=== PATIENT | female | born 1945 | race Caucasian/White ===

== ENCOUNTER 2023-12-23 15:31 | Inpatient (IN) | payer MEDICARE, OTHER, SELFPAY ==
[2023-12-23] VITALS (18 sets, daily range): BP systolic 117–160; BP diastolic 54–69; BMI 37.5; BMI 35.6
--- NOTE | 2023-12-23 13:06 | ED.GENMED ---
History of Present Illness
General
Chief Complaint: Abnormal Lab Value
Source: patient
Exam Limitations: none
Time Seen by Provider: 12/23/23 13:05
Nursing documentation reviewed up to this point in time: agreed with
History of Present Illness
History of Present Illness:
78 yo female w h/o HTN, HLD, GERD presents for low Hgb. She had blood work drawn this morning with a documented hemoglobin of 6.3. Had blood drawn last week for routine appointment today, PCP had her repeat the blood work today and Hgb 6.3
Has arthritis and was taking Motrin 400 mg 'sometimes more' up to 3 times a day until it started 'bothering my stomach' and switched to Tylenol 2 months ago. States she has not taken more than 1-2 doses in past 2 months.
Has not noted change in color of stool. Has been more short of breath intermittently past month and has felt fatigued.
Denies CP, Abd pain.
Past History
Past History
ED Past Medical History: GERD, HTN and Hypercholesterolemia
ED Past Surgical History: Appendectomy and Orthopedic
Social History
Tobacco: Non-smoker
Alcohol: None
Personal:
Living: with family
Review of Systems
Review of Systems
Allergies reviewed?: Yes
All Other Systems: ROS reviewed and negative except as documented in HPI and ROS
Constitutional: Reports fatigue; Denies fever or chills
Respiratory: Denies trouble breathing
Cardiac: Denies chest pain
ABD/GI: Denies abdominal pain, nausea, vomiting, diarrhea, bloody stools or black stools
: Denies dysuria, frequency or difficulty voiding
Musculoskeletal: Reports no symptoms
Skin: Reports no symptoms
Neurological: Reports no symptoms
Phy Exam
Physical Exam
Physical Exam:
GENERAL: No acute distress. A&Ox3.
CONSTITUTIONAL: Afebrile.
EYES: PERRL, conjunctivae normal
ENMT: moist mucus membranes, Pharynx nl
RESPIRATORY: Regular respirations, nonlabored, lungs clear.
CARDIOVASCULAR: Regular rate and rhythm, no murmurs, no rubs.
GI: Soft, nontender, normal BS
Rectal: Brown soft stool, heme positive
MUSCULOSKELETAL: Moves with ease. Well perfused.
SKIN: Warm, dry, pink
PSYCH: Normal mood and affect. Well kept, interactive and appropriate
NEUROLOGIC: Awake, alert and oriented. No focal neurological deficits
Course
Orders/Labs/Results
Orders:
Orders
12/23/23 Breakfast
Clear Liquid
At Your Request: Limited, Knitting Machine Fixer Required
12/23/23 13:26
* Blood Bank Products Urgent
Blood Bank Products: *Packed RBC Leuko(PRBC's)
Quantity: 2
Transfuse Today: Yes
Is product needed for scheduled surgery?: Yes
Reason: Anemia
Other reason: GI bleed
IV Insert/Care/Rem.- Treatment PRN
12/23/23 13:37
GASTROINTESTINAL CONSULT Urgent
Consulting Provider: Keyshawn Kidd
Was physician already notified: Yes
Reason for consult: GI bleed
12/23/23 13:50
Type And Crossmatch Urgent
12/23/23 14:10
Admit/Transfer Patient As Directed
Co-Sign Provider:
Level of Care: Inpatient admission
Assign to:: Medical/Surgical
Physician / Group: Htay
Diagnosis: Anemia, GI Bleed
Reason for Hospitalization: blood transfusion, GI consult
Expected length of stay greater than two midnights?: Yes
ELOS- Estimated Length of Stay in days: 3
I certify the patient meets the requirements for IP care: Yes
12/23/23 14:14
Code Status As Directed
Resuscitation Status: Full Code
12/23/23 14:28
ABO2 Urgent
BBK Wristband Number:
Associate notified that ABO2 has been ordered: [id number]
Date: 12/23/23
Time: 14:02
Numerical Control Programmer ID: [id number]
12/23/23 14:51
Pantoprazole [Protonix] 40 mg PO NOW STA
12/23/23 14:53
Surgical Procedure As Directed
Surgical Procedure: EGD
12/24/23 01:00
Pantoprazole [Protonix IV] 40 mg IV BID
12/24/23 Breakfast
NPO
Allow oral meds: Yes
Allow clear liquids: 4hrs prior to procedure
NPO for procedure after (time): midnight for GI Procedure tomorrow
Comment: may have unrestricted clear liquids up to 4 hrs prior to scheduled proc
12/24/23 14:00
Ferric Gluconate [Ferrlecit] 125 mg 0.9% Sodium Chloride 100 ml [Nss] 100 ml IV ONCE@1400
Abnormal Lab Results
12/23/23
13:50
Crossmatch IS Only See Detail
Vital Signs
Initial and Last Documented VS:
Initial Vital Signs
Temp Pulse Resp BP Pulse Ox
97.5 F 85 18 130/64 99
12/23/23 12:44 12/23/23 12:44 12/23/23 12:44 12/23/23 12:44 12/23/23 12:44
Last Documented Vital Signs
Temp Pulse Resp BP Pulse Ox
98.4 F 68 17 120/65 98
12/23/23 17:35 12/23/23 18:00 12/23/23 18:00 12/23/23 18:00 12/23/23 18:00
MDM/Problems Addressed
Differential Diagnosis Includes:
GI bleed
MDM/Problems Addressed:
78 yo female w h/o HTN, HLD, GERD presents for low Hgb. She had blood work drawn this morning with a documented hemoglobin of 6.3. Had blood drawn last week for routine appointment today, PCP had her repeat the blood work today and Hgb 6.3
Has arthritis and was taking Motrin 400 mg 'sometimes more' up to 3 times a day until it started 'bothering my stomach' and switched to Tylenol 2 months ago. States she has not taken more than 1-2 doses in past 2 months.
Has not noted change in color of stool. Has been more short of breath intermittently past month and has felt fatigued.
Denies CP, Abd pain.
Afebrile, NAD
Rectal exam: heme positive stool
Labs from earlier today reviewed: Hgb 6.3 iron and ferritin low.
Pt stable, GI and Hospitalist notified of admission
Pt is stable.
*Critical Care Note
Total Time (30-74mins, 75-104mins- exclusive of procedures): Not Applicable
ED Attending Note
-
Portions of this chart may have been created with voice recognition software.� Occasional wrong word or��sound alike� substitutions may have occurred due to the inherent limitations of voice recognition software.
Discharge Plan
Departure
Patient Disposition: Admit
Date of Disposition: 12/23/23
Time of Disposition: 13:35
Admit to: Med/Surg
Presentation/result/management discussed w/ accepting MD/DO: Hospitalist
Condition: Fair
Discharge Problem:
GI bleed
Interventions
Interventions:
*Risk Screen - Suicide Last Done: 12/23/23 18:57
*General Assessment Last Done: 12/23/23 12:44
*Neglect/Abuse Screening Last Done: 12/23/23 12:44
*ED COVID-19 Vaccine History Last Done: 12/23/23 12:46
--- NOTE | 2023-12-23 14:02 | CON.GI ---
Consultation
-
Date/Time Consultation Requested: 12/23/23
Date/Time Consultation Performed: 12/23/23
Requesting Provider: Virginia Butler
Performing Provider: Jeni Stacy
Reason for Consultation: Anemia, heme positive stool
Medical History
Chief Complaint / HPI
Chief Complaint: Anemia
History of Present Illness:
Darcy Reed is a 78 y.o. female with pmhx HTN, HLD, GERD who presents for abnormal outpatient labs. She was having routine bloodwork ordered by her PCP, instructed to come in for urgent evaluation after hemoglobin returned at 6.3. She admits to some
fatigue and SOB but otherwise, denies any melena, hematochezia, dizziness/lightheadedness, unintentional weight loss. She admits to prior heavy NSAID use-Motrin 400mg up to three times daily, however, stopped using it about 2 months ago as it caused
her some GI distress, specifically epigastric pain, switching to Tylenol. Reports she had epigastric pain for about a month prior to discontinuing motrin. She reports that she has taken only 1-2 doses of Motrin in the last 2 months. No prior EGD.
Multiple prior colonoscopies in [place], [place], last one approx 5-6 years ago, denies history of polyps. No history of GI bleeding. She is not on any anticoagulation or antiplatelet agents. Denies family history of GI malignancy.
Admitting labs:
WBC 6.3, Hgb 6.3, MCV 63.5, Plt 317
BUN 19/Cr. 0.8
Fe 23, Ferritin 6.6, B12 514, Folate >20
Past Medical History
Past Medical History: HTN and Hypercholesterolemia
Social History
Tobacco: Non-Smoker
Alcohol: None
Drug: None
Family History
Family History: Reviewed & Not Pertinent
Allergies / Home Medications
Allergy/AdvReac Type Severity Reaction Status Date / Time
Penicillins Allergy Rash Verified 12/23/23 12:44
�Medication �Instructions �Recorded
alprazolam 0.5 mg tablet,extended 0.25 mg PO DAILY 12/23/23
release 24 hr
atorvastatin 20 mg tablet 20 mg PO DAILY 12/23/23
bisoprolol 5 1 tab PO DAILY 12/23/23
mg-hydrochlorothiazide 6.25 mg
tablet
fexofenadine 180 mg tablet 180 mg PO DAILY 12/23/23
levothyroxine 75 mcg tablet 75 mcg PO DAILY 12/23/23
magnesium oxide 400 mg PO HS 12/23/23
pantoprazole 40 mg tablet,delayed 40 mg PO DAILY 12/23/23
release
sertraline 50 mg tablet 50 mg PO BID 12/23/23
vitamin B complex 1 tab PO DAILY 12/23/23
Review of Systems
-
History Source: Patient and Family (Daughter)
All other systems: A 12 pt ROS was Negative except as stated above in HPI
Vital Signs
Temp Pulse Resp BP Pulse Ox
97.5 F 65 20 130/64 96
12/23/23 12:44 12/23/23 13:30 12/23/23 13:30 12/23/23 12:44 12/23/23 13:30
Physical Exam
Exam
GENERAL: In no acute distress, appears comfortable
HEENT: +conjunctival pallor
ABDOMEN: +BS; soft, non-tender and non-distended; no rebound or guarding; [place]: brown, hem positive
Results
Diagnostic Image Results:
Prior GI Procedures:
EGD:
Colonoscopy:
Assessment / Plan
-
78 y.o. female with pmhx HTN, HLD, GERD admitted for anemia on outpatient labs, found to be iron deficient with concerns for GI bleeding.
#Iron Deficiency Anemia-- history of heavy NSAID use, no nsaids in last 6-8 weeks
-Hgb 6.3; 2 units of PRBC ordered; elevated BUN suggestive of UGI bleeding source
-2 large peripheral gauge IVs, active T&S
-F 23, Ferritin 6-- > recommend 1x dose of IV iron, then start daily PO iron +bowel regimen
-reports prior epigastric pain about a month ago which resolved w/ discontinuation of NSAIDs, suspect NSAID-induced ulcer that has already healed given her stool is brown
-IV PPI
-clear liquids
-NPO PMN for EGD tomorrow
Discussed plan with both patient and daugther at length who are in agreement. All questions answered.
-
-
Thank you for consultation and allowing me to participate in the patient's care. Please call the information developer GI physician during the after hours with any questions or concerns.
--- NOTE | 2023-12-23 14:19 | HPS.HSE ---
Addendum entered and electronically signed by Gordo Estevez MD 12/23/23 14:41:
I saw and examined the patient.
The CUSTOMER STRATEGY MANAGER or PA's note was reviewed and I agree with the note.
Comment:
This note serves as an addendum to the H&P by tennis camp instructor ANDRAE Fani MENDOZA
HPI
78F HX HTN, HLD, GERD, DJD seen at ER:
- pw fatigue, LONGORIA for a month
- OP lab shows Hgb 6.3
- reports taking Motrin 400 mg 'sometimes more' up to 3 times a day
- currently on Tylenol , cont Motrin t started 'bothering my stomach'- she has not taken more than 1-2 doses in past 2 months.
- Denied change in color of stool.
- Denies CP, Abdominal pain.
HoB POS brown stool per ER
Reviewed VS: HR 65 BP 130/65
PE
Gen: NAD
HEENT: pale conjunctiva
Neck: supple
Lungs: CTA
Cor: RRR S1 S2
Abdomen: soft NT NG
POKER MACHINE ATTENDANT: Alert, NFND
MS: no edema
Psych: normal affect
Data
Ferritin 6.6
ASSESSMENT & PLAN
Symptomatic severe microcytic anemia - suspect subacute chronicity due to macrocytosis
Associated with HoB POS brown stool GIB - suspect subacute DDX; NSAIDs related PUDx
Fe def anemia with low Fe strore
HD stable
HX GERD
- Blood consented
- agree with Blood Tx 2 PRBCs
- To consider IV Fe Tx while in patient
- Clear and IVF
- IV PPI BID
- H & H q8h
- avoid NSAIDS
- GI consulted for EGD in AM
Essential HTN
- currently normotensive
- c/w Bisoprolol with hold index
- Hold HCTZ
HLD
- on statin
DVT
Full code
IP TLM
Original Note:
Family Physician
-
Family Physician: Dana Licea MD
Chief Complaint
-
Anemia
History of Present Illness
Patient is a 78 y/o female sent by her PCP for anemia. Patient reports her Hgb dropped from 11 to 6. She reports taking an increased amount of NSAIDs over the summer due to worsening arthritis pain. She reports she stopped take the NSAIDs over a
month ago when she noted they were starting to make her stomach upset. She admits to increased fatigue as well as dyspnea on exertion over the past few weeks. She denies black or bloody stools. She denies prior history of ulcers.
Medical History
Past Medical History
Past Medical History: Reports Other
Additional Past Medical History:
Essential Hypertension
Hyperlipidemia
Hypothyroidism
Osteoarthritis
Anxiety/Depression
GERD
Past Surgical History: Reports Other
Additional Past Surgical History:
Right Shoulder Surgery
Left Wrist Surgery
Bilateral Knee Replacements
Foot Surgery
Social History
Tobacco: Non-smoker
Alcohol: Occasional
Family History
Family History: Not pertinent
Allergies / Home Medications
Allergies reflects when Allergies were last updated in [facility].
Home Medications with original date entered in [facility]
Allergy/Medication List:
Allergies
Allergy/AdvReac Type Severity Reaction Status Date / Time
Penicillins Allergy Rash Verified 12/23/23 12:44
Home Medications
alprazolam 0.5 mg tablet,extended release 24 hr 0.25 mg PO DAILY 12/23/23
atorvastatin 20 mg tablet 20 mg PO DAILY 12/23/23
bisoprolol 5 mg-hydrochlorothiazide 6.25 mg tablet 1 tab PO DAILY 12/23/23
fexofenadine 180 mg tablet 180 mg PO DAILY 12/23/23
levothyroxine 75 mcg tablet 75 mcg PO DAILY 12/23/23
magnesium oxide 400 mg PO HS 12/23/23
pantoprazole 40 mg tablet,delayed release 40 mg PO DAILY 12/23/23
sertraline 50 mg tablet 50 mg PO BID 12/23/23
vitamin B complex 1 tab PO DAILY 12/23/23
Review of Systems
-
A 12 point ROS was completed and negative except as noted: Yes
Constitutional: Denies Fever or Chills
Respiratory: Reports Trouble Breathing; Denies Cough
Cardiac: Denies Chest Pain, Palpitations or Syncope
Abdomen/GI: Reports See HPI
Neurological: Denies Dizzy
Physical Exam
Vital Signs
Vital Signs
Temp Pulse Resp BP Pulse Ox
97.5 F 65 20 130/64 96
12/23/23 12:44 12/23/23 13:30 12/23/23 13:30 12/23/23 12:44 12/23/23 13:30
Physical Exam
General: Comfortable and Conversant
HEENT: Anicteric and Moist mucous membranes
Respiratory: Clear and Non Labored Respirations
Cardiac: S1/S2 and Regular Rhythm
GI: Soft and Non Tender
Rectal: Hem Positive (Per ED Provider)
Musculoskeletal: No Clubbing, Cyanosis and No Edema
Skin: Warm and Dry
Neuro: Awake, Alert, Oriented and Nonfocal/grossly intact
Psych: Calm
Laboratory Results
-
Laboratory Tests
12/23/23
08:06
WBC 6.3
Hgb 6.3 L*
Hct 23.8 L
Plt Count 317
Iron 23 L
Ferritin 6.6 L
Vitamin B12 514
Folate > 20.0 H
Data Reviewed
-
Lab Data: Labs Reviewed by me
Impression/Plan
-
Blood Loss Anemia secondary to GI Bleed
-Suspect more subacute blood loss
-Suspect peptic ulcer disease related to NSAID use
-Transfuse 2 units PRBCs
-Continue Protonix 40mg IV BID
-Allow clear liquids for now then NPO after midnight for EGD in AM
-Consult GI
Essential Hypertension
-Continue bisoprolol with hold parameters
-Hold HCTZ
Hyperlipidemia
-Continue atorvastatin
Hypothyroidism
-Continue levothyroxine
Anxiety/Depression
-Continue alprazolam and sertraline
DVT proph: SCDs
Code Status: Full Code
[2023-12-23] MEDS: PROTONIX 40 MG PO (16:18)
--- NOTE | 2023-12-23 17:27 | W.PN.UPDATE ---
Update Note
Progress Note Update
This note serves as an addendum to the H&P by substation operator automatic ANDRAE Fani MENDOZA
HPI
78F HX HTN, HLD, GERD, DJD seen at ER:
- pw fatigue, LONGORIA for a month
- OP lab shows Hgb 6.3
- reports taking Motrin 400 mg 'sometimes more' up to 3 times a day
- currently on Tylenol , cont Motrin t started 'bothering my stomach'- she has not taken more than 1-2 doses in past 2 months.
- Denied change in color of stool.
- Denies CP, Abdominal pain.
HoB POS brown stool per ER
Reviewed VS: HR 65 BP 130/65
PE
Gen: NAD
HEENT: pale conjunctiva
Neck: supple
Lungs: CTA
Cor: RRR S1 S2
Abdomen: soft NT NG
COUNTY DEMONSTRATOR: Alert, NFND
MS: no edema
Psych: normal affect
Data
Ferritin 6.6
ASSESSMENT & PLAN
Symptomatic severe microcytic anemia - suspect subacute chronicity due to macrocytosis
Associated with HoB POS brown stool GIB - suspect subacute DDX; NSAIDs related PUDx
Fe def anemia with low Fe strore
HD stable
HX GERD
- Blood consented
- agree with Blood Tx 2 PRBCs
- To consider IV Fe Tx while in patient
- Clear and IVF
- IV PPI BID
- H & H q8h
- avoid NSAIDS
- GI consulted for EGD in AM
Essential HTN
- currently normotensive
- c/w Bisoprolol with hold index
- Hold HCTZ
HLD
- on statin
DVT
Full code
IP TLM
[2023-12-23 22:11] LABS: Hematocrit 25.4 % (37.0-47.0); Hemoglobin 7.5 g/dL (12.0-16.0)
[2023-12-23] MEDS: ZOLOFT 50 MG PO (22:38)
[2023-12-24] VITALS (7 sets, daily range): BP systolic 21–152; BP diastolic 53–76
[2023-12-24] MEDS: PROTONIX IV 40 MG IV ×2 (01:18→20:22)
[2023-12-24] MEDS: NSS (PRESERVATIVE FREE) 10 ML IV ×2 (01:19→20:23)
[2023-12-24] MEDS: SYNTHROID 75 MCG PO (04:59)
[2023-12-24 05:21] LABS: Hematocrit 28.3 % (37.0-47.0); Hemoglobin 8.5 g/dL (12.0-16.0); Mean Corpuscular Hgb 19.6 pg (27.0-31.0); Mean Corpuscular Volume 65.4 fL (81.0-99.0); Mean Platelet Volume 9.6 fL (7.4-10.4); Platelet Count 245 10^3/uL (130-400); Red Blood Cell Count 4.33 10^6/uL (4.20-5.40); White Blood Cell Count 7.1 10^3/uL (4.8-10.8)
[2023-12-24 05:31] LABS: Blood Urea Nitrogen 16 mg/dl (7-17); Calcium 9.5 mg/dl (8.4-10.2); Carbon Dioxide 23 mmol/L (22-30); Chloride 105 mmol/L (98-107); Estimated Creatinine Clearance 67 ml/min; Glucose 105 mg/dl (70-99); Sodium 141 mmol/L (135-145); eGFR > 60.00
[2023-12-24] MEDS: ZOLOFT 50 MG PO ×2 (09:16→20:23)
[2023-12-24] MEDS: ZEBETA 5 MG PO (09:16)
[2023-12-24] MEDS: XANAX 0.25 MG PO (09:16)
--- NOTE | 2023-12-24 09:57 | W.PN.HOSP.TC ---
Addendum entered and electronically signed by Douglas Aivla MD 12/24/23 23:41:
Attending Addendum-
I saw and evaluated the patient. I reviewed the resident�s note and agree with findings and plan as documented in the resident�s note. Sub: Denies BRBPR or melena. Feels improved. 'Im a strong lady. I can go home' Denies abd pain N/V Full 12 point
ROS reviewed and negative except as documented Exam: Vitals reviewed in chart GEN-NAD heart RRR lungs clear abd soft LE no edema
#Symptomatic severe microcytic anemia -Acute on Chronic
- has been taking excessive NSAIDS
- EGD- 12/23- - eosinophilic esophagitis.
- Small hiatal hernia.
- Gastritis. Biopsied.
- No UGI bleeding noted
- Fe def anemia- cont IV iron
- HB 6.3->8.9 s/p Tx 2 PRBCs
- cont IV PPI BID
- avoid NSAIDS
- colonoscopy in am
- NPO pMN
- CBC in am
# Essential HTN
- currently normotensive
- c/w Bisoprolol
- Hold HCTZ
#HLD
- cont atorvastatin
# Anxiety
- cont chronic alprazolam
# Depression
- cont sertraline
# Hypothyroidism
- cont levothyroxine
DVT - SCDS
Full code
Dispo- DC after colon
Time spent coordinating care, review of plan of care with resident, personally reviewed records in EMR, med rec, consults, notes, labs, radiology, d/w nursing � 59 mins
Original Note:
Today's Communication/Plan
-
EGD
IV PPI twice daily
IV iron transfusion
Monitor hemoglobin
Assessment / Plan
Assessment / Plan
Impression: 78-year-old female past ministry of hypertension, hyperlipidemia, GERD, arthritis, DJD with history of extensive Motrin use for arthritis presents from outpatient lab for hemoglobin 6.3 and fatigue.
Plan:
#Symptomatic chronic microcytic anemia
#Iron deficiency
Suspect chronicity due to microcytosis
Associated with Hemoccult positive brown rectal stool, potentially NSAID related, patient reports using multiple doses of NSAIDs for arthritis pain. Informed patient Tylenol is much safer told her max daily dose and encouraged Tylenol use.
Hemoglobin on admission 6.3
Status post 2 unit packed red blood cells
Hemoglobin 8.8
H&H every 8h
Ferritin returned at 6.6
IV iron transfusion
IV PPI twice daily
Avoid NSAIDs
GI consulted, EGD results are in data section
No GI bleed on EGD
Biopsies pending
#Eosinophilic esophagitis
Findings on EGD consistent with eosinophilic esophagitis
Management/workup per GI
#Essential hypertension
Currently normotensive
Continue home bisoprolol
Currently holding hydrochlorothiazide
#Hypothyroidism
Continue home levothyroxine
#Anxiety/depression
Continue home sertraline
#Hyperlipidemia
Continue home statin
Full code
Diet: Clear liquids
Data:
EGD 12/24/2023
Impression: - Esophageal mucosal changes consistent with
eosinophilic esophagitis.
- Small hiatal hernia.
- Gastritis. Biopsied.
- Food (residue) in the stomach.
- Normal examined duodenum. Biopsied.
- Biopsies were taken with a cold forceps for
evaluation of eosinophilic esophagitis.
- No UGI bleeding noted
Anticipated Discharge: 24 - 48 hours
Subjective/Interval History
-
Date of Service: December 24, 2023
No acute events overnight, patient received 2 units packed red blood cells
Patient reports resolution of abdominal symptoms and fatigue
Objective Data
-
Labs:
Laboratory Results
12/23/23 12/24/23 12/24/23
22:00 04:31 04:53
WBC 7.1
Hgb 7.5 L Cancelled 8.5 L
Hct 25.4 L Cancelled 28.3 L
Plt Count 245 D
Sodium 141
Potassium 4.0
Chloride 105
Carbon Dioxide 23
BUN 16
Creatinine 0.7
Glucose 105 H
Calcium 9.5
12/24/23
12:31
WBC
Hgb Pending
Hct Pending
Plt Count
Sodium
Potassium
Chloride
Carbon Dioxide
BUN
Creatinine
Glucose
Calcium
Vital Signs:
Vital Signs
Temp Pulse Resp BP Pulse Ox
98.2 F 66 22 138/65 98
12/24/23 07:30 12/24/23 07:30 12/24/23 07:30 12/24/23 07:30 12/24/23 07:30
I&O
12/23/23 12/24/23 12/25/23
06:59 06:59 06:59
Intake Total 620 / 620
Balance 620 / 620
Review of Systems
-
History Source: Patient
Respiratory: Reports No Symptoms
Cardiac: Reports No Symptoms
Abdomen/GI: Reports No Symptoms; Denies Abdominal Pain, Bloody Stools or Black Stools
Physical Exam
-
General: Well Developed, Well Nourished, No Apparent Distress, Comfortable and Conversant
Respiratory: Clear to Auscultation and Wheezes
Cardiac: Regular Rhythm and S1/S2
GI: Soft, Nontender, Nondistended and Normal Bowel Sounds
Rectal: Negative Maroon Stools
Skin: Warm and Dry
Neuro: Awake, Alert, Oriented and AO x 3
Psych: Calm and Intact Judgement/Insight
Data Reviewed
-
Labs: Labs Reviewed by me and Discussed with Physician
[2023-12-24] MEDS: FERRLECIT 110 MG IV (13:02)
[2023-12-24 13:09] LABS: Hematocrit 29.8 % (37.0-47.0); Hemoglobin 8.9 g/dL (12.0-16.0)
[2023-12-24] MEDS: NULYTELY SOLUTION 4 LITERS PO (16:08)
--- NOTE | 2023-12-24 16:25 | CM ---
manager print reviewed patient's chart and met with patient and patient lives with her daughter in a 2 story home, patient is independent with adl's and ambulation, no dme, home when stable, no needs
PCP: Dr Dana Licea
Pharmacy [facility]
Plan; Home when stable no needs, AD packet provided.
[2023-12-25] MEDS: SYNTHROID 75 MCG PO (05:27)
[2023-12-25 07:25] VITALS: BP 135/65
--- NOTE | 2023-12-25 07:31 | W.PN.HOSP.TC ---
Addendum entered and electronically signed by Douglas Avila MD 12/25/23 23:17:
Attending Addendum-
I saw and evaluated the patient. I reviewed the resident�s note and agree with findings and plan as documented in the resident�s note. Sub: Denies BRBPR or melena. Upset cant eat and prep was intense. seen with daught present. 'Im going home aft e
this procedure.' Denies abd pain N/V Full 12 point ROS reviewed and negative except as documented Exam: Vitals reviewed in chart GEN-NAD heart RRR lungs clear abd soft LE no edema anxious appearing
#Symptomatic severe microcytic anemia -Acute on Chronic
- has been taking excessive NSAIDS
- EGD- 12/23- - eosinophilic esophagitis.
- Small hiatal hernia.
- Gastritis. Biopsied.
- No UGI bleeding noted
- Fe def anemia- cont IV iron x 2 doses prior to DC
- HB 6.3->9.1 s/p Tx 2 PRBCs
- avoid NSAIDS
- colonoscopy-Diverticulosis in the sigmoid colon, in the
descending colon and in the ascending colon. There was
no evidence of diverticular bleeding.
- Non-bleeding internal hemorrhoids.
# Essential HTN
- currently normotensive
- c/w Bisoprolol
#HLD
- cont atorvastatin
# Anxiety
- cont chronic alprazolam
# Depression
- cont sertraline
# Hypothyroidism
- cont levothyroxine
DVT - SCDS
Full code
Dispo- DC HOME
Time spent coordinating care, DC planning, review of DC plan of care with resident, transition of care, review of records, med rec/scripts sent electronically, consults, notes, d/w consultants, nursing, daughter, and CM� 35 mins
Original Note:
Today's Communication/Plan
-
colonoscopy
IV iron transfusion
Assessment / Plan
Assessment / Plan
Impression: 78-year-old female past ministry of hypertension, hyperlipidemia, GERD, arthritis, DJD with history of extensive Motrin use for arthritis presents from outpatient lab for hemoglobin 6.3 and fatigue.
Plan:
#Symptomatic chronic microcytic anemia
#Iron deficiency
Suspect chronicity due to microcytosis
Associated with Hemoccult positive brown rectal stool, potentially NSAID related, patient reports using multiple doses of NSAIDs for arthritis pain. Informed patient Tylenol is much safer told her max daily dose and encouraged Tylenol use.
Hemoglobin on admission 6.3
Status post 2 unit packed red blood cells
Hemoglobin 8.8
Ferritin returned at 6.6 on admission
s/p IV iron transfusion, second ordered for today
IV PPI twice daily
Avoid NSAIDs
GI consulted, EGD results are in data section
No GI bleed on EGD
Biopsies pending
colonoscopy pending today
#Eosinophilic esophagitis
Findings on EGD consistent with eosinophilic esophagitis
Management/workup per GI
#Essential hypertension
Currently normotensive
Continue home bisoprolol
Currently holding hydrochlorothiazide
#Hypothyroidism
Continue home levothyroxine
#Anxiety/depression
Continue home sertraline
#Hyperlipidemia
Continue home statin
Full code
Diet: NPO
Data:
EGD 12/24/2023
Impression: - Esophageal mucosal changes consistent with
eosinophilic esophagitis.
- Small hiatal hernia.
- Gastritis. Biopsied.
- Food (residue) in the stomach.
- Normal examined duodenum. Biopsied.
- Biopsies were taken with a cold forceps for
evaluation of eosinophilic esophagitis.
- No UGI bleeding noted
Anticipated Discharge: Within 24 hours
Subjective/Interval History
-
Date of Service: December 25, 2023
nurse reports anxiety
Pt pleasant and talkative today
colonoscopy prep done overnight
Objective Data
-
Labs:
Laboratory Results
12/25/23
07:22
WBC Pending
Hgb Pending
Hct Pending
Plt Count Pending
Sodium Pending
Potassium Pending
Chloride Pending
Carbon Dioxide Pending
BUN Pending
Creatinine Pending
Glucose Pending
Calcium Pending
Vital Signs:
Vital Signs
Temp Pulse Resp BP Pulse Ox
98.1 F 77 16 132/65 96
12/24/23 22:41 12/24/23 22:41 12/24/23 22:41 12/24/23 22:41 12/24/23 22:41
I&O
12/24/23 12/25/23 12/26/23
06:59 06:59 06:59
Intake Total 620 / 620 690 / 690
Balance 620 / 620 690 / 690
Review of Systems
-
History Source: Patient
Constitutional: Reports No Symptoms
Respiratory: Reports No Symptoms
Cardiac: Reports No Symptoms
Abdomen/GI: Reports No Symptoms
Physical Exam
-
General: Well Developed, Well Nourished, Comfortable and Conversant
Respiratory: Clear to Auscultation
Cardiac: Regular Rhythm and S1/S2
GI: Soft, Nontender and Nondistended
Skin: Warm and Dry
Neuro: Awake, Alert, Oriented and AO x 3
Psych: Calm and Intact Judgement/Insight
Data Reviewed
-
Medical Tests (Nuc Med, Echo etc): Report Reviewed by me and Discussed with Physician
Labs: Labs Reviewed by me and Discussed with Physician
[2023-12-25 08:31] LABS: Hemoglobin 9.1 g/dL (12.0-16.0); Mean Corp Hgb Conc. 29.4 g/dL (33.0-37.0); Platelet Count 279 10^3/uL (130-400); Red Blood Cell Count 4.56 10^6/uL (4.20-5.40); Red Cell Dist. Width 22.6 % (11.5-14.5); White Blood Cell Count 7.7 10^3/uL (4.8-10.8)
[2023-12-25 08:33] LABS: Blood Urea Nitrogen 11 mg/dl (7-17); Calcium 9.8 mg/dl (8.4-10.2); Carbon Dioxide 24 mmol/L (22-30); Chloride 103 mmol/L (98-107); Estimated Creatinine Clearance 58 ml/min; Glucose 117 mg/dl (70-99); Potassium 3.8 mmol/L (3.5-5.1); Sodium 143 mmol/L (135-145); eGFR > 60.00
[2023-12-25] MEDS: PROTONIX IV 40 MG IV (08:42)
[2023-12-25] MEDS: NSS (PRESERVATIVE FREE) 10 ML IV (08:43)
[2023-12-25] MEDS: XANAX 0.25 MG PO (08:44)
[2023-12-25] MEDS: ZOLOFT 50 MG PO (08:44)
[2023-12-25] MEDS: ZEBETA 5 MG PO (08:44)
--- NOTE | 2023-12-25 13:44 | CM ---
Chart reviewed and plan is to return to home when stable.
Plan; Home no needs when stable.
[2023-12-25 15:07] VITALS: BP 123/59; BP_SYST 15
[2023-12-25 15:12] VITALS: BP 123/59; BP_SYST 15
[2023-12-25 15:15] VITALS: BP 122/60; BP_SYST 19
[2023-12-25 15:40] VITALS: BP 136/61
[2023-12-25 15:50] VITALS: BP 142/63
[2023-12-25] MEDS: FERRLECIT 110 MG IV (15:52)
--- NOTE | 2023-12-25 16:47 | W.DCSUMMARY ---
Addendum entered and electronically signed by Douglas Avila MD 12/25/23 23:18:
Read, reviewed, and agree. See same day progress note for additional details.
Raji Avila MD
Original Note:
Documented by User: Padilla Carlos DO, Resident 12/25/23 17:07
Discharge Summary
Discharge Data
Date of Admission: 12/23/23
Date of Discharge: 12/25/23
-
Pending Results: Yes
Additional Pending Results:
EGD biopsies
Hospital Course
Discharging Physician : Austin Carlos
Disposition : Home
Primary care physician : Dr. Dana licea
Principal Discharge diagnosis : Chronic GI bleed
Chronic Discharge diagnosis : Iron deficiency anemia, eosinophilic esophagitis, essential hypertension, hypothyroidism, anxiety, depression, hyperlipidemia
Hospital Course : 78-year-old female was sent to the emergency department by her PCP for anemia. Patient reported that her hemoglobin dropped from 11-6 on outpatient labs. She reports taking an increased amount of NSAIDs over the past couple
months for worsening arthritis. She admits to having fatigue dyspnea on exertion for the past few weeks. In the emergency department hemoglobin was 6.3, she received 2 units packed red blood cells and started on IV fluids. Iron studies were
checked and her ferritin returned at 6.6. During her stay she received 2 IV iron transfusions. Next morning GI was consulted who took the patient for an upper endoscopy, no GI bleed was seen on upper endoscopy however biopsies were taken. On the
EGD they did find findings consistent with eosinophilic esophagitis. Patient was also taken for a colonoscopy second day of her admission, no source of bleeding or iron deficiency anemia was seen. She was set up with a video capsule study with GI
as an outpatient. Patient's diet was advanced she was able to tolerate food and eventually was discharged home with follow-up with her primary care physician and gastroenterology for video capsule endoscopy study. Patient was discharged home on
oral iron.
Important imaging findings : No imaging
Procedure findings :
12/24/2023 upper endoscopy, impression:
- Esophageal mucosal changes consistent with
eosinophilic esophagitis.
- Small hiatal hernia.
- Gastritis. Biopsied.
- Food (residue) in the stomach.
- Normal examined duodenum. Biopsied.
- Biopsies were taken with a cold forceps for
evaluation of eosinophilic esophagitis.
- No UGI bleeding noted
12/25/2023 colonoscopy, impression:
- The examined portion of the ileum was normal.
- One 7 mm polyp in the ascending colon, removed with
a cold snare. Resected and retrieved.
- One 1 mm polyp in the transverse colon, removed with
a cold biopsy forceps. Resected and retrieved.
- Diverticulosis in the sigmoid colon, in the
descending colon and in the ascending colon. There was
no evidence of diverticular bleeding.
- Non-bleeding internal hemorrhoids.
- Anal papilla(e) were hypertrophied.
- The exam was otherwise without abnormality on direct
and retroflexion views of both the right colon and
rectum without any other lesions, masses, AVMs, or
endoscopic signs of inflammation.
Discharge Plan
-
Patient Disposition: Home (Routine Discharge)
Discharge Diagnosis/Procedures: chronic GI bleed/iron deficiency anemia
Condition: Good
Diet: Regular
Activity: No restrictions
Driving Restrictions: As prior to admission
Bathing Restrictions: None
Activity Restrictions/Additional Instructions:
please follow up with your PCP within one week of discharge
Please follow up with GI for a video capsule study
Referrals:
Dana Licea MD [Family Provider] - in less than 1 week
Carlo Mcwilliams DO [Active] - in two to four weeks
Additional Discharge Medication Instructions: please take oral iron daily or every other day based off constipation
please avoid NSAIDs
Prescriptions:
New
ferrous sulfate [Iron (ferrous sulfate)] 325 mg (65 mg iron) tablet
325 mg PO DAILY Qty: 90 2RF
Continued
atorvastatin 20 mg Tablet
20 mg PO DAILY
bisoprolol-hydrochlorothiazide 5-6.25 mg Tablet
1 tab PO DAILY
fexofenadine 180 mg Tablet
180 mg PO DAILY
levothyroxine 75 mcg Tablet
75 mcg PO DAILY
pantoprazole 40 mg Tablet,Delayed Release (Dr/Ec)
40 mg PO DAILY
vitamin B complex Tablet
1 tab PO DAILY
sertraline 50 mg Tablet
50 mg PO BID
alprazolam 0.5 mg Tablet Extended Release 24 Hr
0.25 mg PO DAILY
Patient Comments:
12/23/23: last filled 08/06/23 for 90 tablets
magnesium oxide 400 mg magnesium Tablet
400 mg PO HS
Discharge Orders:
Discharge Patient (As Directed); Ordered 12/25/23
Ordered By: Padilla Carlos
Discharge Date and Time
Discharge Date/Time: 12/25/23 18:04
Print Language: TOGOLESE

Documented by User: Douglas Avila MD 12/25/23 23:12
Discharge Summary
Discharge Data
Date of Admission: 12/23/23
Date of Discharge: 12/25/23
Discharge Plan
-
Patient Disposition: Home (Routine Discharge)
Discharge Diagnosis/Procedures: chronic GI bleed/iron deficiency anemia
Condition: Good
Diet: Regular
Activity: No restrictions
Driving Restrictions: As prior to admission
Bathing Restrictions: None
Activity Restrictions/Additional Instructions:
please follow up with your PCP within one week of discharge
Please follow up with GI for a video capsule study
Referrals:
Dana Licea MD [Family Provider] - in less than 1 week
Carlo Mcwilliams DO [Active] - in two to four weeks
Additional Discharge Medication Instructions: please take oral iron daily or every other day based off constipation
please avoid NSAIDs
Prescriptions:
New
ferrous sulfate [Iron (ferrous sulfate)] 325 mg (65 mg iron) tablet
325 mg PO DAILY Qty: 90 2RF
Continued
atorvastatin 20 mg Tablet
20 mg PO DAILY
bisoprolol-hydrochlorothiazide 5-6.25 mg Tablet
1 tab PO DAILY
fexofenadine 180 mg Tablet
180 mg PO DAILY
levothyroxine 75 mcg Tablet
75 mcg PO DAILY
pantoprazole 40 mg Tablet,Delayed Release (Dr/Ec)
40 mg PO DAILY
vitamin B complex Tablet
1 tab PO DAILY
sertraline 50 mg Tablet
50 mg PO BID
alprazolam 0.5 mg Tablet Extended Release 24 Hr
0.25 mg PO DAILY
Patient Comments:
12/23/23: last filled 08/06/23 for 90 tablets
magnesium oxide 400 mg magnesium Tablet
400 mg PO HS
Discharge Orders:
Discharge Patient (As Directed); Ordered 12/25/23
Ordered By: Padilla Carlos
Discharge Date and Time
Discharge Date/Time: 12/25/23 18:04
Print Language: TOGOLESE
== END 2023-12-25 18:04 | disposition home or self-care (01) | DRG 392 ==
LOC: 4 WEST ACU 15:31
PROVIDERS: Internal Medicine Gastroenterology; Physician Assistant Medical; Student in an Organized Health Care Education/Training Program; ADMITTING PHYSICIAN Internal Medicine; ATTENDING PHYSICIAN Family Medicine; EMERGENCY PHYSICIAN Emergency Medicine; FAMILY PHYSICIAN Internal Medicine; OTHER PHYSICIAN Internal Medicine
PROC: 30233N1 Transfusion of Nonautologous Red Blood Cells into Peripheral Vein, Percutaneous Approach (ICD-10-PCS; 2023-12-23)
PROC: 0DB98ZX Excision of Duodenum, Via Natural or Artificial Opening Endoscopic, Diagnostic (ICD-10-PCS; 2023-12-24)
PROC: 0DBL8ZX Excision of Transverse Colon, Via Natural or Artificial Opening Endoscopic, Diagnostic (ICD-10-PCS; 2023-12-25)
PROC: 0DBK8ZX Excision of Ascending Colon, Via Natural or Artificial Opening Endoscopic, Diagnostic (ICD-10-PCS; 2023-12-25)
DX: K20.0 Eosinophilic esophagitis (principal); I10 Essential (primary) hypertension; E78.00 Pure hypercholesterolemia, unspecified; D50.0 Iron deficiency anemia secondary to blood loss (chronic); K57.30 Diverticulosis of large intestine without perforation or abscess without bleeding; D12.2 Benign neoplasm of ascending colon; K29.70 Gastritis, unspecified, without bleeding; K44.9 Diaphragmatic hernia without obstruction or gangrene; F41.9 Anxiety disorder, unspecified; F32.A Depression, unspecified; E03.9 Hypothyroidism, unspecified; K22.89 Other specified disease of esophagus; K64.0 First degree hemorrhoids
CPT/HCPCS: 88305; 88312; 36415; 36430; 80048; 82607; 82728; 82746; 83540; 85014; 85018; 85025; 85027; 86850; 86900; 86901; 86920; 88342; 99285; J2916; P9016

== ENCOUNTER → 2024-06-03 11:32 | Outpatient (REF) | payer MEDICARE, OTHER, SELFPAY ==
[2024-06-03 12:27] LABS: % Basophils 0.7 % (0-2); % Eosinophils 4.4 % (0-6); % Immature Granulocytes 0.3 % (0-0.5); % Monocytes 9.9 % (1.7-9.3); % Neutrophils 55.7 % (42.2-75.2); Absolute Eosinophils 0.3 10^3/uL (0-0.7); Absolute Lymphocytes 1.7 10^3/uL (1.2-3.4); Absolute Monocytes 0.6 10^3/uL (0.1-0.6); Absolute Neutrophils 3.2 10^3/uL (1.4-6.5); Hematocrit 38.6 % (37.0-47.0); Hemoglobin 12.9 g/dL (12.0-16.0); Mean Corp Hgb Conc. 33.4 g/dL (33.0-37.0); Mean Corpuscular Hgb 32.4 pg (27.0-31.0); Mean Platelet Volume 9.6 fL (7.4-10.4); Nucleated Red Blood Cells % 0 %; Platelet Count 205 10^3/uL (130-400); Red Blood Cell Count 3.98 10^6/uL (4.20-5.40); Red Cell Dist. Width 14.6 % (11.5-14.5); White Blood Cell Count 5.7 10^3/uL (4.8-10.8)
[2024-06-03 12:50] LABS: ALT (SGPT) 25 U/L (0-35); AST (SGOT) 29 U/L (14-36); Albumin 4.7 g/dl (3.5-5.0); Alkaline Phosphatase 83 U/L (38-126); Blood Urea Nitrogen 20 mg/dl (7-17); Calcium 10.6 mg/dl (8.4-10.2); Carbon Dioxide 26 mmol/L (22-30); Chloride 105 mmol/L (98-107); Glucose 111 mg/dl (70-99); Potassium 4.6 mmol/L (3.5-5.1); Sodium 142 mmol/L (135-145); Total Bilirubin 0.8 mg/dl (0.2-1.3); Total Protein 7.2 g/dl (6.3-8.2); eGFR > 60.00
[2024-06-03 13:01] LABS: LDL Cholesterol, Direct 91 mg/dl
[2024-06-03 13:09] LABS: Free T4 1.19 ng/dl (0.78-2.19)
[2024-06-03 13:23] LABS: TSH 2.75 uIU/ml (0.47-4.68)
== END ==
LOC: REG 11:32
PROVIDERS: ATTENDING PHYSICIAN Internal Medicine; FAMILY PHYSICIAN Orthopaedic Surgery
DX: D64.9 Anemia, unspecified (principal); I10 Essential (primary) hypertension; E78.00 Pure hypercholesterolemia, unspecified; Z01.818 Encounter for other preprocedural examination
CPT/HCPCS: 36415; 80053; 83721; 84439; 84443; 85025; 93005

== ENCOUNTER → 2024-12-13 08:02 | Outpatient (REF) | payer MEDICARE, OTHER, SELFPAY ==
[2024-12-13 08:58] LABS: Hematocrit 41.4 % (37.0-47.0); Hemoglobin 12.6 g/dL (12.0-16.0); Mean Corp Hgb Conc. 30.4 g/dL (33.0-37.0); Mean Corpuscular Volume 86.6 fL (81.0-99.0); Nucleated Red Blood Cells % 0 %; Platelet Count 231 10^3/uL (130-400); Red Cell Dist. Width 18.6 % (11.5-14.5)
[2024-12-13 09:30] LABS: ALT (SGPT) 23 U/L (0-35); AST (SGOT) 27 U/L (14-36); Albumin 4.6 g/dl (3.5-5.0); Alkaline Phosphatase 85 U/L (38-126); Blood Urea Nitrogen 17 mg/dl (7-17); Calcium 10.0 mg/dl (8.4-10.2); Carbon Dioxide 26 mmol/L (22-30); Chloride 107 mmol/L (98-107); Glucose 120 mg/dl (70-99); HDL Cholesterol 65 mg/dl; LDL Cholesterol, Calculated 95 mg/dl; Potassium 4.3 mmol/L (3.5-5.1); Sodium 142 mmol/L (135-145); Total Protein 7.7 g/dl (6.3-8.2); Very Low Density Lipoprotein 37 mg/dl (0-30); eGFR > 60.00
[2024-12-13 09:46] LABS: Vitamin D, 25-OH*** 37.4 ng/mL (30-80)
[2024-12-13 10:21] LABS: Glycohemoglobin (HgbA1c) 5.8 % (4.0-5.6)
== END ==
LOC: REG 08:02
PROVIDERS: ATTENDING PHYSICIAN Internal Medicine
DX: E11.9 Type 2 diabetes mellitus without complications (principal); D64.9 Anemia, unspecified; E78.00 Pure hypercholesterolemia, unspecified; E55.9 Vitamin D deficiency, unspecified; E03.9 Hypothyroidism, unspecified
CPT/HCPCS: 36415; 80053; 80061; 82306; 83036; 84443; 85025